=== PATIENT | female | born 1975 | race Caucasian/White ===

== ENCOUNTER 2021-04-17 15:20 | Emergency (ER) | payer OTHER ==
[~2021-04-17] VITALS: Ht 170.2 cm; Wt 63.5 kg
[2021-04-17 18:42] VITALS: BP 97/66
== END 2021-04-17 18:43 | disposition left against medical advice (07) ==
LOC: M.ERS 15:20
DX: R06.02 Shortness of breath (principal); Z53.21 Procedure and treatment not carried out due to patient leaving prior to being seen by health care provider